=== PATIENT | female | born 1975 | race Caucasian/White ===

== ENCOUNTER → 2016-10-10 | Outpatient (CLI) | payer OTHER ==
[~2016-10-10] VITALS: Ht 167.6 cm; Wt 93.4 kg
[~2016-10-10] MED LIST: ASPIR 8181 M1 PO; ATARAX,VISTARIL25 MG PO; BACTRIM,SEPT1 TABLET PO; BUSPAR10 MG PO; CELEBREX200 MG PO; CELEBREX50 MG PO; CIPRO500 MG PO; CYMBALTA30 MG PO; CYMBALTA60 MG PO; DEXILANT60 MG PO; EXCEDRIN MIGRA1 EAC3 PO; FLEXERIL10 MG PO; FLOVENT 22120 INHALA IH; FOLIC ACID1 MG PO; GABAPENTIN100 MG PO; HYDROCHLOROTHIA25 MG PO; HYDROCODON-ACE1 EAC7 PO; LEXAPRO10 MG PO; LIDODERM 5% P1 PATCH TD; LORCET 5-325 M1 EACH PO; LYRICA50 MG PO; LYRICA75 MG PO; MOBIC7.5 MG PO; OMEPRAZOLE40 M1 PO; PERCOCET 5/31 TABLET PO; PHENERGAN25 MG PR; PLAQUENIL200 MG PO; PROAIR HFA8.5 GM IH; PROTONIX40 MG PO; SYNTHROID25 MCG PO; VITAMIN D31000 UNIT PO; ZANAFLEX4 M1 PO; ZOFRAN ODT4 MG PO; ZOLOFT50 MG PO
== END | disposition home or self-care (01) ==
LOC: AMB 08:07
PROC: 0DBE8ZX Excision of Large Intestine, Via Natural or Artificial Opening Endoscopic, Diagnostic (ICD-10-PCS; principal; 2016-10-10)
DX: K52.9 Noninfective gastroenteritis and colitis, unspecified (principal); K92.1 Melena; K64.8 Other hemorrhoids; K66.0 Peritoneal adhesions (postprocedural) (postinfection); R10.13 Epigastric pain; Z90.49 Acquired absence of other specified parts of digestive tract; M06.9 Rheumatoid arthritis, unspecified; R74.8 Abnormal levels of other serum enzymes; F40.01 Agoraphobia with panic disorder; J45.909 Unspecified asthma, uncomplicated; Z83.79 Family history of other diseases of the digestive system; F10.21 Alcohol dependence, in remission; I34.1 Nonrheumatic mitral (valve) prolapse; Z79.82 Long term (current) use of aspirin
CPT/HCPCS: 88305; J2250; J3010

== ENCOUNTER 2017-04-29 15:38 | Emergency (ER) | payer OTHER ==
[~2017-04-29] VITALS: Ht 162.6 cm; Wt 93.8 kg
[2017-04-29 16:34] LABS: HEMATOCRIT 40.1 % (36.0-46.0); HEMOGLOBIN 13.9 G/DL (11.9-15.5); MCHC 34.7 G/DL (30.0-36.0); MCV 86.4 FL (83-99); PLATELET COUNT 240 K/uL (156-360); RBC DIS.WIDTH-CV 13.2 % (11.8-14.6); RBC DIS.WIDTH-SD 41.2 % (39-53); RED BLOOD COUNT 4.64 M/uL (3.80-5.20); WHITE BLOOD COUNT 8.5 K/uL (4.1-10.2)
[2017-04-29 16:44] LABS: CHLORIDE 105 mEq/L (99-109); POTASSIUM 3.8 mEq/L (3.7-5.4); SODIUM 140 mEq/L (136-147)
[2017-04-29 16:45] LABS: GLUCOSE 109 mg/dL (70-99)
[2017-04-29 16:49] LABS: CREATININE 0.8 mg/dL (0.6-1.3); GFR ESTIMATE (CALCULATED) > 59 mL/min/
[2017-04-29 16:50] LABS: UREA NITROGEN (BUN) 10 mg/dL (9-23)
[2017-04-29] MEDS ORDERED: PREDNISONE50 MG PO (18:17)
[2017-04-29 18:42] VITALS: BP 149/64
== END 2017-04-29 18:44 | disposition home or self-care (01) ==
LOC: EME 15:38
DX: R55 Syncope and collapse (principal); M54.5 Low back pain; G89.29 Other chronic pain; I10 Essential (primary) hypertension; J45.909 Unspecified asthma, uncomplicated; K21.9 Gastro-esophageal reflux disease without esophagitis; F32.9 Major depressive disorder, single episode, unspecified; F41.9 Anxiety disorder, unspecified
CPT/HCPCS: 71046; 80048; 85027; 93005; 99281; 99284